=== PATIENT | male | born 1960 | race Caucasian/White ===

== ENCOUNTER → 2016-12-18 | Outpatient (CLI) | payer MEDICARE, OTHER ==
[~2016-12-18] MED LIST: HUMA100I5 SC; LANTINJ4 SC; LISI2.5T3 PO; NICO21PAT TD; NORCOTAB PO; VITA100067 PO
[2016-12-18 13:50] LABS: MEAN CORPUSCULAR HEMOGLOBIN 33.7 pg (27.0-33.0); MEAN CORPUSCULAR HGB CONC 35.9 g/dl (32.0-36.5); MEAN CORPUSCULAR VOLUME 93.8 fl (80.0-96.0); RED CELL DISTRIBUTION WIDTH 12.6 % (11.5-14.5); WHITE BLOOD COUNT 9.8 10^3/uL (4.0-10.0)
[2016-12-18 15:27] LABS: ANION GAP 11 MEQ/L (8-16); BLOOD UREA NITROGEN 11 MG/DL (7-18); CALCIUM LEVEL 9.4 MG/DL (8.5-10.1); CARBON DIOXIDE LEVEL 23 MEQ/L (21-32); CHLORIDE LEVEL 98 MEQ/L (98-107); CREATININE FOR GFR 0.89 MG/DL (0.70-1.30); GLOMERULAR FILTRATION RATE > 60.0 (>56); GLUCOSE, FASTING 131 MG/DL (70-105); SODIUM LEVEL 132 MEQ/L (136-145)
== END ==
LOC: M LAB 13:21 → EDBD 13:21
PROVIDERS: ATTEND Surgery Vascular Surgery
DX: I70.212 Atherosclerosis of native arteries of extremities with intermittent claudication, left leg (principal)

== ENCOUNTER → 2016-12-21 | Outpatient (CLI) | payer MEDICARE ==
[~2016-12-21] MED LIST changes: +ACETAMINOPHEN 325 MG TAB As Ordered ONE; +HEPARIN 1,000 UNITS/ML 10ML VIAL (FOR RADIOLOGY& DIALYSIS ONLY) As Ordered ONE; +ISOVUE-300 61% 50ML VIAL (Q9967) As Ordered ONE; +LIDOCAINE 2% MDV 20 ML VIAL As Ordered ONE; +MIDAZOLAM INJ 2 MG/2 ML VIAL (J2250) As Ordered ONE; +PROTAMINE SULF INJ 50 MG/5 ML VIAL (J2720) As Ordered ONE; +fentaNYL 100 MCG/2 ML INJECTION (J3010) As Ordered ONE
--- NOTE | 2017-01-03 14:18 | REPKIM ---
DATE OF PROCEDURE: 12/21/2016 PREPROCEDURE DIAGNOSIS: Left lower extremity claudication and rest pain. POSTPROCEDURE DIAGNOSIS: Left lower extremity claudication and rest pain. PROCEDURE: Aortogram, iliofemoral angiogram, bilateral lower extremity angiography, MYNX closure of the right common femoral arteriotomy. SURGEON: Dr. Lee Hernandez. EXCEL SPECIALIST: Angelique Davis and Michael Desai ANESTHESIA: Local sedation with 3 mg Versed, 150 mcg fentanyl and 20 mL of 2% lidocaine. Sedation time was from 9:10 a.m. to 9:40 a.m. with the sedation administered by the RN in the room. Cardiopulmonary monitoring performed by the RN in the room. The procedure was performed under my direct supervision and direction. I was present for and directed the entire case. CONTRAST: 15 mL. Heparin: None. Protamine: None COMPLICATION: None. DRAINS: None. IMPLANTS: Right common femoral arterial MYNX closure device. INDICATION: The patient is a 56-year-old male with claudication and rest pain in the left lower extremity who has nonpalpable pulses and will undergo an angiogram with possible angioplasty and stent. Risks, benefits, and alternative treatment options were discussed with the patient. Alternative treatment options included, but were not limited to no interventions. Risks includes but were not limited to infection, bleeding. DESCRIPTION OF PROCEDURE: The patient was taken to the angiography suite and placed supine on the angiography room table and the right common femoral artery was cannulated with a micropuncture needle after anesthetizing the overlying skin with 1% lidocaine. The micropuncture wire was advanced through the micropuncture needle which was upsized to a micropuncture sheath. A catheter was placed in the aorta and an aortogram was performed. The catheter was pulled down to the level of the bifurcation of the iliac arteries and an iliofemoral angiogram was performed. The catheter was left at the bifurcation and a bilateral lower extremity angiography was performed. The catheter was then removed and a MYNX closure device was used to close the arteriotomy in the right common femoral artery with an additional 10 minutes of adjunctive pressure applied for hemostasis. Dressings were then applied. The patient tolerated the procedure well. All instrument, sponge and needle counts were correct at the end of the case. There were no complications. Dr. Hernandez was present for and directed the entire case. The patient was transferred to the holding area and subsequently discharged in stable condition.
== END | disposition home or self-care (01) ==
LOC: M IRPRO 08:11
PROVIDERS: ATTEND Surgery Vascular Surgery
DX: I73.9 Peripheral vascular disease, unspecified (principal); M79.605 Pain in left leg
CPT/HCPCS: 36200; 99152; 99153; C1760; C1769; C1887; C1894; G0269; J2250; J3010; Q9967

== ENCOUNTER 2017-01-19 10:18 | Inpatient (IN) | payer MEDICARE ==
[~2017-01-19] VITALS: Ht 182.9 cm; Wt 71.3 kg
[2017-01-19] VITALS (9 sets, daily range): BP systolic 127–170; BP diastolic 69–90; O2SAT 92–97
[~2017-01-19 10:18] MED LIST changes: -ACETAMINOPHEN 325 MG TAB As Ordered ONE; -HEPARIN 1,000 UNITS/ML 10ML VIAL (FOR RADIOLOGY& DIALYSIS ONLY) As Ordered ONE; -ISOVUE-300 61% 50ML VIAL (Q9967) As Ordered ONE; -LIDOCAINE 2% MDV 20 ML VIAL As Ordered ONE; -MIDAZOLAM INJ 2 MG/2 ML VIAL (J2250) As Ordered ONE; -NICO21PAT TD; -PROTAMINE SULF INJ 50 MG/5 ML VIAL (J2720) As Ordered ONE; -fentaNYL 100 MCG/2 ML INJECTION (J3010) As Ordered ONE
[2017-01-19] MEDS ORDERED: HEPARIN SOD (PORCINE) 5000 UNITS/ML VIAL As Ordered ONE ×2 (11:29→12:38)
[2017-01-19] MEDS ORDERED: THROMBIN SOLN 5,000 UNITS VIAL As Ordered ONE ×2 (11:29→11:55)
[2017-01-19] MEDS ORDERED: MIDAZOLAM INJ 2 MG/2 ML VIAL (J2250) As Ordered ONE (12:24)
[2017-01-19] MEDS ORDERED: fentaNYL 100 MCG/2 ML INJECTION (J3010) As Ordered ONE ×2 (12:24→13:20)
[2017-01-19] MEDS ORDERED: PROPOFOL 500 MG/50 ML VIAL As Ordered ONE ×2 (12:24→13:50)
[2017-01-19] MEDS ORDERED: LIDOCAINE 1% SDV INJ 30 ML VIAL As Ordered ONE (12:34)
[2017-01-19] MEDS ORDERED: BUPIVACAINE HCL 0.25% 30 ML VIAL As Ordered ONE (12:34)
[2017-01-19] MEDS ORDERED: ONDANSETRON 4MG/2ML VIAL (J2405) As Ordered ONE (12:42)
[2017-01-19] MEDS ORDERED: dexameTHASONE 4 MG/ML 1ML VIAL (J1100) As Ordered ONE (12:42)
[2017-01-19] MEDS ORDERED: KETAMINE HCL 200 MG/20 ML VIAL As Ordered ONE (12:43)
[2017-01-19] MEDS ORDERED: NORCO, ANEXSIA 5/325MG TABLET (HYDROcodone/ACETAMINOPHEN) PO PRN (14:45)
[2017-01-19] MEDS ORDERED: ACETAMINOPHEN TAB 650MG DOSE (2X325MG) PO PRN (14:45)
[2017-01-19] MEDS ORDERED: BISACODYL 10 MG SUPP PR PRN (14:45)
[2017-01-19] MEDS ORDERED: ONDANSETRON 4MG/2ML VIAL (J2405) IV PRN ×2 (14:45→15:15)
[2017-01-19] MEDS ORDERED: MOM 30ML SUSPENSION UDC PO PRN (14:45)
[2017-01-19] MEDS: LR 1,000 ML IV SCH (15:00)
[2017-01-19] MEDS ORDERED: PERCOCET 5MG/325MG TAB PO PRN (15:15)
[2017-01-19] MEDS ORDERED: LR 1,000 ML IV SCH (15:15)
[2017-01-19] MEDS ORDERED: METOCLOPRAMIDE INJ 10MG/2ML VIAL (J2765) IV PRN (15:15)
[2017-01-19] MEDS ORDERED: MEPERIDINE INJ 25 MG/ML VIAL (J2175) IV PRN (15:15)
[2017-01-19] MEDS ORDERED: fentaNYL 100 MCG/2 ML INJECTION (J3010) IV PRN (15:15)
[2017-01-19] MEDS: VITAMIN D 1,000 INTERNATIONAL UNITS TABLET PO SCH (16:14)
[2017-01-19] MEDS: NORCO, ANEXSIA 5/325MG TABLET (HYDROcodone/ACETAMINOPHEN) PO PRN ×2 (16:15→21:45)
[2017-01-19] MEDS ORDERED: HumaLOG INSULIN (NovoLOG) PER UNIT SC SCH (21:00)
[2017-01-19] MEDS ORDERED: LEVEMIR (INSULIN DETEMIR) 1 UNITS/0.01ML SC SCH (21:00)
[2017-01-19] MEDS: DOCUSATE SODIUM 100 MG CAP PO SCH (21:44)
[2017-01-19] MEDS: SENOKOT S TAB PO SCH (21:44)
[2017-01-19] MEDS ORDERED: DEXTROSE 50% 50 ML SYRINGE IV PRN (22:15)
[2017-01-19] MEDS ORDERED: GLUCAGON FOR INJ 1 MG VIAL (J1610) SC PRN (22:15)
[2017-01-19] MEDS ORDERED: GLUCOSE 4 GM CHEW TABLET PO PRN (22:15)
[2017-01-20] VITALS (11 sets, daily range): BP systolic 133–153; BP diastolic 68–90; O2SAT 90–96
[2017-01-20] MEDS: LR 1,000 ML IV SCH (01:00)
[2017-01-20] MEDS: NORCO, ANEXSIA 5/325MG TABLET (HYDROcodone/ACETAMINOPHEN) PO PRN (05:06)
[2017-01-20] MEDS ORDERED: HumaLOG INSULIN (NovoLOG) PER UNIT SC SCH (07:30)
[2017-01-20] MEDS: DOCUSATE SODIUM 100 MG CAP PO SCH (08:14)
[2017-01-20] MEDS: VITAMIN D 1,000 INTERNATIONAL UNITS TABLET PO SCH (08:14)
[2017-01-20] MEDS: SENOKOT S TAB PO SCH (08:14)
[2017-01-20] MEDS ORDERED: LISINOPRIL *2.5 MG* TAB PO SCH (09:00)
[2017-01-20] MEDS ORDERED: NICOTINE 21MG/24HR 1 EA TRANSDERMAL TD SCH (09:00)
[2017-01-20] MEDS ORDERED: NICO21PAT TD (09:08)
[2017-01-20] MEDS ORDERED: NORCOTAB PO (09:08)
--- NOTE | 2017-02-01 16:13 | RO ---
DATE OF PROCEDURE: 01/19/2017 PREOPERATIVE DIAGNOSIS: Left lower extremity ischemia, occluded left common and external iliac artery stents. POSTOPERATIVE DIAGNOSIS: Left lower extremity ischemia, occluded left common and external iliac artery stents. PROCEDURE: Bilateral common femoral arterial endarterectomy, right to left femorofemoral bypass graft with 8 mm PTFE graft. SURGEON: Lee Hernandez MD CORPORATE SERVICES MANAGER: None. ANESTHESIA: Local monitored anesthesia care (MAC). 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 Patient will undergo a right to left femorofemoral bypass graft. Risks, benefits and alternative treatment options were discussed with the patient. ESTIMATED BLOOD LOSS: 100 mL. IV FLUID: 1100 mL. HEPARIN: 6000 units, followed by a 2000 unit bolus. SPECIMENS: Right and left femoral arterial contents. COMPLICATIONS: None. DRAINS: None. IMPLANTS: 8 mm PTFE graft from the right common femoral artery to the left common femoral artery. DESCRIPTION OF PROCEDURE: Patient was taken to the operating room, placed supine on the operating room table and then prepped and draped in a standard surgical fashion. A time-out was performed confirming the correct patient, procedure and laterality. After which, the femoral arteries were exposed bilaterally through oblique incisions. The femoral arteries were sharply dissected proximally and distally and encircled with vessel loops. Patient was given 6000 units of heparin. After which, the right common femoral artery was opened and noted to have a significant amount of plaque in the right common femoral artery and an endarterectomy was performed. After which, the 8 mm PTFE graft, which had been tunneled through the lower abdomen, was anastomosed to the right common femoral artery using #6-0 Prolene suture. The left common femoral artery was then dissected proximally distally and an arteriotomy created again showing a large amount of thrombus within the artery, but there was also noted to be plaque distally, which was not exposed previously due to the arteriotomy not being as low as at this time. A femoral endarterectomy was then performed of the left common femoral artery with removal of plaque. After which, the 8 mm PTFE graft was anastomosed to the left common femoral artery using #6-0 Prolene suture. There was good flow in both lower extremities after completion of the femorofemoral bypass graft. Hemostasis was obtained. After which, the incisions were closed using #2-0 Vicryl to approximate the deeper layers and chris to approximate the skin. Dressings were applied. Patient tolerated the procedure well. All instrument, sponge and needle counts were correct at the end of the case. There were no complications. Dr. Hernandez was present for and directed the entire case. Patient was transferred to the recovery room, awake, alert, extubated and in stable condition.
== END 2017-01-20 09:29 | disposition home or self-care (01) | DRG 254 ==
LOC: M OR 10:18 → M PCU 15:30
PROVIDERS: ADMIT Surgery Vascular Surgery; ATTEND Surgery Vascular Surgery
PROC: 04CL0ZZ Extirpation of Matter from Left Femoral Artery, Open Approach (ICD-10-PCS; 2017-01-19)
PROC: 04CK0ZZ Extirpation of Matter from Right Femoral Artery, Open Approach (ICD-10-PCS; 2017-01-19)
PROC: 041K0JJ Bypass Right Femoral Artery to Left Femoral Artery with Synthetic Substitute, Open Approach (ICD-10-PCS; principal; 2017-01-19 12:00)
DX: T82.856A Stenosis of peripheral vascular stent, initial encounter (principal); E10.9 Type 1 diabetes mellitus without complications; I70.213 Atherosclerosis of native arteries of extremities with intermittent claudication, bilateral legs; I10 Essential (primary) hypertension; Z79.4 Long term (current) use of insulin; F17.200 Nicotine dependence, unspecified, uncomplicated; Y83.1 Surgical operation with implant of artificial internal device as the cause of abnormal reaction of the patient, or of later complication, without mention of misadventure at the time of the procedure

== ENCOUNTER → 2017-02-27 | Outpatient (CLI) | payer MEDICARE ==
[~2017-02-27] MED LIST changes: +NICO21PAT TD
--- NOTE | 2017-02-27 18:58 | REP ---
LOWER EXTREMITY ARTERIAL ULTRASOUND: 02/27/2017. Clinical history: Status post right to left fem-fem bypass graft. For evaluation. Findings: Sonographic evaluation demonstrates the right to left fem-fem bypass graft with abundant color flow filling its lumen. At the left anastomosis there is abundant flow and into the SFA popliteal calf vessels. These show minimal plaque. There is some mild plaque in the SFA and profunda at their junction. Velocities: Brachial artery 180 m/s Dorsalis pedis 160 m/s TPA 170 m/s all on the left. Left peak systolic velocity Phasicity [employer] SALESPERSON 109 cm/s triphasic Profunda 89 cm/s triphasic SFA proximal 90 cm/s triphasic SFA mid 82 cm/s triphasic SFA distal 54 cm/s triphasic Popliteal 43 cm/s triphasic [place] proximal 25 cm/s biphasic Tibioperoneal trunk 37 cm/s triphasic CH[employer] OPERATOR proximal 38 cm/s triphasic CHILLER OPERATOR distal 39 cm/s triphasic [place] distal 48 cm/s triphasic At the anastomosis of the graft on the right peak velocity 113 cm/s. The common femoral artery proximal to the anastomoses shows velocity 229 cm/s. Just before the left anastomosis in the cross femoral graft the velocity measures 79 cm/s. In the left anastomosis, velocity is 63 cm/s. Impression: Patent fem-fem bypass graft with good flow and velocities as described above. Mild plaque on the left in the vessels described. Signed by Bruno Chowdhury MD 02/27/2017 08:46 P
== END ==
LOC: M RAD 09:13
PROVIDERS: ATTEND Surgery Vascular Surgery
DX: I70.213 Atherosclerosis of native arteries of extremities with intermittent claudication, bilateral legs (principal)

== ENCOUNTER → 2017-09-20 | Outpatient (CLI) | payer MEDICARE | LOC: M RAD 10:27 | DX: I70.213 Atherosclerosis of native arteries of extremities with intermittent claudication, bilateral legs (principal); I70.0 Atherosclerosis of aorta | CPT/HCPCS: 93923 ==